=== PATIENT | female | born 1960 | race African-American/Black ===

== ENCOUNTER 2017-10-11 16:41 | Emergency (ER) | payer SELFPAY ==
[~2017-10-11] VITALS: Ht 175.3 cm; Wt 198.0 kg
[2017-10-11 16:52] VITALS: BP 132/84
[2017-10-11] MEDS ORDERED: ACETAMINOPHEN 500MG TABLET PO ONE (20:00)
== END 2017-10-11 20:20 | disposition home or self-care (01) ==
LOC: ER 18:20
DX: J03.90 Acute tonsillitis, unspecified (principal); H10.89 Other conjunctivitis; H61.23 Impacted cerumen, bilateral
CPT/HCPCS: 99283